=== PATIENT | male | born 1990 | race Caucasian/White ===

== ENCOUNTER 2019-06-05 15:33 | Emergency (ER) | payer OTHER, SELFPAY ==
[2019-06-05 15:42] VITALS: BP 150/104; PULSE 77; RESP 16; TEMP 37.1; O2SAT 98
--- NOTE | 2019-06-05 15:49 | ED.GENADULT ---
HPI - General Adult General Chief complaint: Abdominal Pain Stated complaint: stomach pain diahrrea Time Seen by Provider: 06/05/19 15:51 Source: patient and RN notes reviewed Mode of arrival: ambulatory Limitations: no limitations History of Present Illness HPI narrative: This is a 29 years old male presents to the office for an evaluation of diarrhea and cramping since yesterday. Last diarrhea was at around 2pm today. He ate egg-biscuit and sausage for breakfast. Denies bloody stools, vomiting, fever or ill feeling. His daughter was sick with similar symptoms about a week ago. Denies recent travel or eating different food. He ate beef BBQ prior to illness. No treatment so far. Related Data Home Medications Medication Instructions Recorded Confirmed No Home Medications 06/05/19 06/05/19 Allergies Allergy/AdvReac Type Severity Reaction Status Date / Time No Known Allergies Allergy Verified 06/05/19 16:11 Review of Systems Review of Systems: Narrative: CONSTITUTIONAL: Denies fever or ill feeling EYES: Denies visual changes ENT: Denies rhinorrhea, congestion CARDIOVASCULAR: Denies chest pain RESPIRATORY: Denies cough GASTROINTESTINAL: Denies vomiting or bloody stools GENITOURINARY: Denies urinary symptoms SKIN: Denies rash MUSCULOSKELETAL: Denies acute back pain, joint pain, or myalgia. NEUROLOGIC: Denies numbness, or focal weakness. [facility] Social History Social History (Updated 06/05/19 @ 16:09 by JENNIFER Chou) Smoking packs per day: 0.5 Smoking cigarettes per day: 10.0 Smoking status: Current every day smoker Comments At time of signature, I agree with nursing past medical, surgical, social and family history. There is no relevant family history pertinent to the presenting complaint. Exam Narrative: Exam Narrative: GENERAL: This is a well-nourished, well-developed patient, in no apparent distress. Morbidly obese EYES: Sclera clear/white. Vision is grossly intact. EARS: External ears normal, auditory canals clear and without drainage, TMs normal without perforation. Hearing grossly intact. NOSE: External nose normal with no obvious nasal discharge, nares without redness, no rhinorrhea. THROAT: Mucous membranes moist, posterior pharynx clear. NECK: Neck supple, non-tender without lymphadenopathy, masses or thyromegaly. CARDIOVASCULAR: Regular rate and rhythm without murmurs, gallops, or rubs. RESPIRATORY: Clear to auscultation. Breath sounds equal bilaterally. No wheezes, rales, or rhonchi. GASTROINTESTINAL: Abdomen soft, non-tender, nondistended. Bowel sounds are active. No hepato-splenomegaly, or palpable masses. No guarding. SKIN: warm, intact with no suspicious lesions or rash, good texture and turgor. NEURO: awake, alert, and oriented to person, place and time. There were no obvious focal neurologic abnormalities. Steady gait Miriam Coma Scale Eye Opening: Spontaneous 4 [place] Coma Scale Motor: Obeys Commands 6 Miriam Coma Scale Verbal: Oriented 5 Course Vital Signs Vital signs: Vital Signs Temperature 98.7 F 06/05/19 15:42 Pulse Rate 77 06/05/19 15:42 Respiratory Rate 16 06/05/19 15:42 Blood Pressure 150/104 H 06/05/19 15:42 Pulse Oximetry 98 06/05/19 15:42 Temperature 98.7 F 06/05/19 15:42 Pulse Rate 77 06/05/19 15:42 Respiratory Rate 16 06/05/19 15:42 Blood Pressure 140/90 06/05/19 16:08 Pulse Oximetry 98 06/05/19 15:42 Medical Decision Making MDM Narrative Medical decision making narrative: Discharge instructions reviewed with patient, as well as provided in writing per nursing staff. The instructions also include specific and strict return/GO TO THE ER as well as f/u information. All questions have been answered, and the patient deny any further questions with discharge and discharge plan. Differential Diagnosis Differential Diagnosis: colitis, food poison, gastroenteritis, peritonitis Medical Records Medical records reviewed:
[2019-06-05 16:08] VITALS: BP 140/90
== END 2019-06-05 16:08 | disposition home or self-care (01) ==
PROVIDERS: Emergency Provider Nurse Practitioner
DX: R19.7 Diarrhea, unspecified (principal); F17.200 Nicotine dependence, unspecified, uncomplicated
CPT/HCPCS: 99201; G0463

== ENCOUNTER 2019-06-25 16:30 | Emergency (ER) | payer OTHER, SELFPAY | END 2019-06-25 17:12 | disposition left against medical advice (07) | LOC: EXPBETH 16:48 | PROVIDERS: Emergency Provider Nurse Practitioner | DX: Z53.21 Procedure and treatment not carried out due to patient leaving prior to being seen by health care provider (principal) | CPT/HCPCS: 99199 ==

== ENCOUNTER 2019-06-26 15:52 | Emergency (ER) | payer OTHER, SELFPAY ==
[2019-06-26 16:18] VITALS: BP 139/86; PULSE 90; RESP 20; TEMP 36.8; O2SAT 97
--- NOTE | 2019-06-26 16:34 | ED.GENADULT ---
HPI - General Adult General Chief complaint: Abdominal Pain Stated complaint: Abd pain Time Seen by Provider: 06/26/19 16:34 Source: patient Mode of arrival: ambulatory Limitations: no limitations History of Present Illness HPI narrative: 29-year-old male patient [facility] with complaints of lower abdominal cramping and diarrhea for the past 2 to 3 days. Patient denies any fevers or vomiting. Denies any runny nose, stuffy nose, sore throat. Patient states he has had some little lower abdominal cramping and diarrhea but denies any blood to the diarrhea. Denies any black tarry stools. Patient states that the diarrhea is actually gotten better today and is becoming more formed. Patient states he has been taking ibuprofen because he is also had a headache. Denies taking any other medications. Related Data Home Medications Medication Instructions Recorded Confirmed Men's Daily Multivit-Mineral 06/26/19 06/26/19 Allergies Allergy/AdvReac Type Severity Reaction Status Date / Time No Known Allergies Allergy Verified 06/05/19 16:11 Review of Systems Review of Systems: Narrative: CONSTITUTIONAL: Denies fever, chills, or sweats. EYES: Denies visual changes, redness, or discharge. ENT: Denies rhinorrhea, congestion, sore throat, or otalgia. CARDIOVASCULAR: Denies chest pain, palpitations, or edema. RESPIRATORY: Denies cough or dyspnea. GASTROINTESTINAL: Positive abdominal pain, nausea, denies vomiting, positive diarrhea. GENITOURINARY: Denies dysuria or hematuria. SKIN: Denies rash or itching. MUSCULOSKELETAL: Denies back pain, joint pain, or myalgia. NEUROLOGIC: Denies headache, numbness, or weakness. PSYCHIATRIC: Denies anxiety or depression. PMFSH Social History Social History Smoking packs per day: 0.5 Smoking cigarettes per day: 10.0 Smoking status: Current every day smoker Comments At the time of my signature I agree with nursing past medical history, surgical, social, and family history. There is no relevant family history pertinent to the presenting complaint. Exam Narrative: Exam Narrative: GENERAL: Well-appearing, well-nourished, and in no acute distress. HEAD: Normocephalic, atraumatic. EYES: PERRLA and EOMI. ENT: Nares clear, no rhinorrhea or epistaxis. Mucous membranes moist. Bilateral TMs are clear with no erythema or foreign bodies in the canal. Posterior pharynx with no erythema, tonsil enlargement, exudates or lesions present. NECK: Supple. No lymphadenopathy CHEST: Clear to auscultation. No respiratory distress. HEART: Regular rate and rhythm. No murmur heard. Normal peripheral pulses. ABDOMEN: Soft, flat, nondistended. No guarding, rebound tenderness, or rigid. No pulsatilla masses. Bowel sounds present in all four quadrants. No organomegaly. Negative Werner?s sign. No periumbicial tenderness. No Supra public tenderness or distension. Good femoral pulses bilaterally. No hernia noted. No scars or surface trauma. EXTREMITIES: Normal range of motion. No edema. SKIN: Warm, dry, no rash. NEURO: No focal deficits. Alert and oriented x3. Course Vital Signs Vital signs: Vital Signs Temperature 36.8 C 06/26/19 16:18 Pulse Rate 90 06/26/19 16:18 Respiratory Rate 20 06/26/19 16:18 Blood Pressure 139/86 06/26/19 16:18 Pulse Oximetry 97 06/26/19 16:18 Temperature 36.8 C 06/26/19 16:18 Pulse Rate 90 06/26/19 16:18 Respiratory Rate 20 06/26/19 16:18 Blood Pressure 139/86 06/26/19 16:18 Pulse Oximetry 97 06/26/19 16:18 Vital signs reviewed. The patient has been informed that they may have pre-hypertension or Hypertension based on a BP reading in the department. I recommend that the patient call the primary care provider listed on their discharge instructions or a physician of their choice this week to arrange follow up for further evaluation of possible pre-hypertension or Hypertension Medical
== END 2019-06-26 16:50 | disposition home or self-care (01) ==
PROVIDERS: Emergency Provider Nurse Practitioner Family
DX: R19.7 Diarrhea, unspecified (principal); F17.210 Nicotine dependence, cigarettes, uncomplicated
CPT/HCPCS: 99213; G0463

== ENCOUNTER 2019-07-06 13:56 | Emergency (ER) | payer OTHER, SELFPAY ==
[2019-07-06 14:05] VITALS: BP 142/79; PULSE 81; RESP 20; TEMP 36.8; O2SAT 97
--- NOTE | 2019-07-06 14:32 | ED.NAVMDI ---
HPI - Nausea/Vomiting/Diarrhea General Chief complaint: Nausea/Vomiting/Diarrhea Stated complaint: diarhea Time Seen by Provider: 07/06/19 14:32 Source: patient Mode of arrival: ambulatory Limitations: no limitations History of Present Illness HPI Narrative: Serge Oden is a 29 yo male with PMH of diverticulitis wjho is here with diarrhea 6 x since 10 A. Related Data Home Medications Medication Instructions Recorded Confirmed [id number] 1 cap PO 07/06/19 [Daily Multivitamin] Allergies Allergy/AdvReac Type Severity Reaction Status Date / Time No Known Allergies Allergy Verified 06/05/19 16:11 Review of Systems Review of Systems: Narrative: CONSTITUTIONAL: Denies fever, chills, sweats. EYES: Denies visual changes, redness, discharge. ENT: Denies rhinorrhea, congestion, sore throat, otalgia. CARDIOVASCULAR: Denies chest pain, palpitations, edema. RESPIRATORY: Denies dyspnea, wheezing, cough GASTROINTESTINAL: Denies abdominal pain, nausea, vomiting, has had diarrhea. GENITOURINARY: Denies dysuria, hematuria, abnormal discharge SKIN: Denies rash or itching. NEUROLOGIC: Denies numbness, or focal weakness. PSYCHIATRIC: Denies anxiety or depression. [facility] Family History Family History Mother Diverticulitis Other Crohn's colitis Social History Social History Smoking packs per day: 0.5 Smoking cigarettes per day: 10.0 Smoking status: Current every day smoker Comments At time of signature, I agree with nursing past medical, surgical, social and family history. There is no relevant family history pertinent to the presenting complaint. Exam Narrative: Exam Narrative: GENERAL: This is a well-nourished, well-developed patient, in mild distress. HEAD: normocephalic, atraumatic. EYES: Sclera clear/white. Vision is grossly intact. EARS: External ears normal, Hearing grossly intact. NOSE: External nose normal with no obvious nasal discharge, nares without redness, no rhinorrhea. THROAT: Mucous membranes moist, NECK: Neck supple, non-tender CARDIOVASCULAR: Regular rate and rhythm without murmurs, gallops, or rubs. RESPIRATORY: Clear to auscultation. Breath sounds equal bilaterally. No wheezes, rales, or rhonchi. GASTROINTESTINAL: Abdomen soft, SKIN: warm, intact with no suspicious lesions or rash, good texture and turgor. NEURO: awake, alert, and oriented to person, place and time. There were no obvious focal neurologic abnormalities. Steady gait EXTREMITIES: Normal range of motion. BACK: Nontender without deformity or crepitance. Course Course Emergency Course: Started on Imodium and Zofran Discussed hydration and work excuse BP nited - follow up with pcp Vital Signs Vital signs: Vital Signs Temperature 98.2 F 07/06/19 14:05 Pulse Rate 81 07/06/19 14:05 Respiratory Rate 20 07/06/19 14:05 Blood Pressure 142/79 H 07/06/19 14:05 Pulse Oximetry 97 07/06/19 14:05 Temperature 98.2 F 07/06/19 14:05 Pulse Rate 81 07/06/19 14:05 Respiratory Rate 20 07/06/19 14:05 Blood Pressure 142/79 H 07/06/19 14:05 Pulse Oximetry 97 07/06/19 14:05 MDM - Nausea/Vomiting/Diarrhea Differential Diagnosis Differential diagnosis: Likely traveler's diarrhea, gastroenteritis, dehydration and other Discharge Plan Discharge Clinical Impression: Gastroenteritis Patient Disposition: Home, Self-Care Condition: Stable Instructions: Gastroenteritis (DC) Prescriptions: New ondansetron HCl [Zofran] 4 mg tablet 4 mg PO Q8H PRN (Reason: nausea and vomiting) Qty: 20 RF: 0 loperamide [Imodium A-D] 2 mg capsule 2 mg PO Q2-4H PRN (Reason: loose stool) Qty: 30 RF: 0 No Action Daily Multivitamin 200-100-500 mcg Capsule 1 cap PO RF: 0 Follow-up/Referrals: UNKNOWN,DOCTOR [Primary Care Provider] - Stand Alone F
== END 2019-07-06 14:55 | disposition home or self-care (01) ==
PROVIDERS: Emergency Provider Nurse Practitioner
DX: K52.9 Noninfective gastroenteritis and colitis, unspecified (principal); F17.210 Nicotine dependence, cigarettes, uncomplicated
CPT/HCPCS: 99213; G0463

== ENCOUNTER 2019-09-25 13:43 | Emergency (ER) | payer OTHER, SELFPAY ==
[2019-09-25 13:55] VITALS: BP 157/86; PULSE 84; RESP 20; O2SAT 98
--- NOTE | 2019-09-25 14:01 | ED.ABDPAIN ---
HPI - Abdominal Pain General Chief Complaint: Nausea/Vomiting/Diarrhea Stated Complaint: stomach pain/diarrhea Time Seen by Provider: 09/25/19 14:02 Source: patient and RN notes reviewed History of Present Illness HPI narrative: Patient is a 29-year-old male who presents the urgent care with complaints of intermittent abdominal pain and diarrhea. Patient states he woke up this morning with the diarrhea and is gone approximately 7-8 times. Patient states that he missed work because he did not want to keep running to the bathroom . However patient does admit to no abdominal pain at this time. Patient states he believes it is the barbecue chicken he ate last night . Patient denies any nausea, vomiting, fever. Patient has taken Pepto 1 time approximately 3 hours ago. Patient denies of any blood in the stool and denies of any urinary complaints at this time. Patient states will I still be charged the full amount because I am not getting a work release . Patient is aware that he has been evaluated and will be charged for the current visit. No acute distress noted. Patient had a plan of care. Related Data Allergies Allergy/AdvReac Type Severity Reaction Status Date / Time No Known Allergies Allergy Verified 09/25/19 13:48 Review of Systems Review of Systems: Narrative: CONSTITUTIONAL: Denies fever, chills, or sweats. EYES: Denies visual changes, redness, or discharge. ENT: Denies rhinorrhea, congestion, sore throat, or otalgia. CARDIOVASCULAR: Denies chest pain, palpitations, or edema. RESPIRATORY: Denies cough or dyspnea. GASTROINTESTINAL: Reports of loose stools without nausea or vomiting. Currently denies abdominal pain GENITOURINARY: Denies dysuria or hematuria. SKIN: Denies rash or itching. MUSCULOSKELETAL: Denies back pain, joint pain, or myalgia. NEUROLOGIC: Denies headache, numbness, or weakness. All other systems reviewed are negative, except as documented in HPI. [facility] Social History Social History Smoking packs per day: 0.5 Smoking cigarettes per day: 10.0 Smoking status: Current every day smoker Comments At the time of my signature, I reviewed and agree with the nursing past medical, surgical, social, and family history. There is no relevant family history pertinent to the patient complaint. Exam Narrative: Exam Narrative: GENERAL: This is a well-nourished, well-developed patient, in no apparent distress. HEAD: normocephalic, atraumatic. EYES: PERRL. Sclera clear/white. Vision is grossly intact. EARS: External ears normal NOSE: External nose normal with no obvious nasal discharge, nares without redness, no rhinorrhea. THROAT: Mucous membranes moist, posterior pharynx clear. NECK: Neck supple CARDIOVASCULAR: Regular rate and rhythm without murmurs, gallops, or rubs. RESPIRATORY: Clear to auscultation. Breath sounds equal bilaterally. No wheezes, rales, or rhonchi. GASTROINTESTINAL: Abdomen soft, mild diffuse tenderness, nondistended. Bowel sounds are hyperactive. SKIN: warm, intact with no suspicious lesions or rash, good texture and turgor. NEURO: awake, alert, and oriented to person, place and time. There were no obvious focal neurologic abnormalities. EXTREMITIES: No clubbing, cyanosis, or edema. \ BACK: Negative bilateral CVA tenderness Course Vital Signs Vital signs: Vital Signs Pulse Rate 84 09/25/19 13:55 Respiratory Rate 20 09/25/19 13:55 Blood Pressure 157/86 H 09/25/19 13:55 Pulse Oximetry 98 09/25/19 13:55 Pulse Rate 84 09/25/19 13:55 Respiratory Rate 20 09/25/19 13:55 Blood Pressure 157/86 H 09/25/19 13:55 Pulse Oximetry 98 09/25/19 13:55 Reviewed?patient is informed that they may have pre-hypertension or hypertension based on a blood pressure reading in the department. I recommend the patient call the primary care provider listed on their discharge instructions or a physician of their choice this week to ar
== END 2019-09-25 14:05 | disposition home or self-care (01) ==
PROVIDERS: Emergency Provider Nurse Practitioner Family
DX: R19.7 Diarrhea, unspecified (principal); F17.210 Nicotine dependence, cigarettes, uncomplicated
CPT/HCPCS: 99213; G0463

== ENCOUNTER 2025-02-09 08:46 | Emergency (ER) | payer OTHER, MEDICAID, SELFPAY ==
[2025-02-09 08:47] VITALS: BP 144/93; PULSE 100; RESP 19; TEMP 36.7; O2SAT 99
[2025-02-09] MEDS: CEPHALEXIN 500 MG CAPSULE PO (11:39)
[2025-02-09] MEDS: TETANUS,DIPHTHERIA,AC PERTUSSIS ADULT (0.5 ML) BOOSTRIX IM (11:39)
--- NOTE | 2025-02-09 13:07 | ED.WOUNDLAC ---
HPI - Wound/Laceration General Chief Complaint: Wound/Laceration Stated Complaint: finger lac Time Seen by Provider: 02/09/25 11:14 History of Present Illness HPI narrative: Patient was putting up some Halloween decorations yesterday, and cut his right ring finger on a corn husk. Happened at 6:00 p.m. last night. No current bleeding, he did wash it off very well afterwards. Unsure last tetanus. No numbness or weakness or issues moving his finger Related Data Allergies Allergy/AdvReac Type Severity Reaction Status Date / Time No Known Allergies Allergy Verified 09/25/19 13:48 Review of Systems Review of Systems: All systems reviewed & are unremarkable except as noted in HPI and below PMFSH Family History Family History Mother Diverticulitis Other Crohn's colitis Social History Social History Smoking packs per day: 0.5 Smoking cigarettes per day: 10.0 Smoking status: Current every day smoker Exam Narrative: EXAMINATION OF ORGAN SYSTEMS/BODY AREAS: Constitutional: Vital signs per nursing GENERAL:[No acute distress, non-toxic appearing.] HEAD: Normal with no signs of head trauma. EYES: EOMI, conjunctiva normal ENT: Hearing grossly intact LUNGS: Nonlabored breathing. HEART: [Regular rate and rhythm], normal cap refill ABD: [Soft], [nontender to palpation] EXT: Normal range of motion SKIN: Linear laceration across left ring finger, rather superficial NEURO: [Alert and oriented x 3. No gross focal sensory or strength deficits.] PSYCH: Normal affect Course Vital Signs Vital signs: Vital Signs Temperature 98.1 F 02/09/25 08:47 Pulse Rate 100 02/09/25 08:47 Respiratory Rate 19 02/09/25 08:47 Blood Pressure 144/93 H 02/09/25 08:47 Pulse Oximetry 99 02/09/25 08:47 Oxygen Delivery Room Air 02/09/25 08:47 Temperature 98.1 F 02/09/25 08:47 Pulse Rate 100 02/09/25 08:47 Respiratory Rate 19 02/09/25 08:47 Blood Pressure 144/93 H 02/09/25 08:47 Pulse Oximetry 99 02/09/25 08:47 Oxygen Delivery Room Air 02/09/25 08:47 MDM - Wound/Laceration MDM Narrative Medical decision making narrative: Patient presents with finger injury, on my evaluation the laceration is rather shallow, no tendon injury, normal motion, no neurovascular deficits, very well-appearing here, since injury happened more than 12 hours ago I will not be closing it, clean well here and updated on tetanus, I will provide antibiotics prophylactically given the possibility of this being a dirty wound, with return precautions. Patient agreeable to plan Discharge Plan Discharge Clinical Impression: Laceration Patient Disposition: Home Condition: Stable Instructions: Antibiotic Form, Laceration (ED) Additional Instructions: Keep the area clean, the antibiotics as prescribed to prevent infection, if you notice any swelling or pain or drainage or difficulty moving your finger, come back to the hospital. Patient Language: Congolese Prescriptions: New cephalexin 500 mg capsule 500 mg PO Q12H 5 Days Qty: 10 0RF cephalexin 500 mg capsule 500 mg PO BID 5 Days Qty: 10 0RF No Action dicyclomine 10 mg capsule 10 mg PO BID Qty: 10 0RF Follow-up/Referrals: Andrey Sheldon MD [Physician, Family Practice] - 2 Days PHYSICIAN,SECURITY GUARD SUPERVISOR [Primary Care Provider, Internal Medicine]
== END 2025-02-09 11:46 | disposition home or self-care (01) ==
PROVIDERS: Emergency Provider Emergency Medicine
DX: S61.215A Laceration without foreign body of left ring finger without damage to nail, initial encounter (principal); Z23 Encounter for immunization; W26.8XXA Contact with other sharp object(s), not elsewhere classified, initial encounter
CPT/HCPCS: 90471; 90715; 99283; A9270